=== PATIENT | female | born 1950 | race Caucasian/White ===

== ENCOUNTER 2017-11-16 19:35 | Emergency (ER) | payer MEDICARE, OTHER ==
[~2017-11-16] VITALS: Ht 160 cm; Wt 105.0 kg
[~2017-11-16 19:35] MED LIST: AMLO5TAB4 PO; ASPI-630 PO; FURO-69 PO; LISI-376 PO; METF500T5 PO; MULT-245 PO; POTA10TA10 PO; SIMV5TAB PO
--- NOTE | 2017-11-16 20:35 | PHYS DOC ---
Past History Past Medical History: Diabetes, High Cholesterol, Hypertension, Other Past Surgical History: Hysterectomy Smoking: Non-smoker Alcohol Use: None Drug Use: None Adult General Chief Complaint Chief Complaint: SKIN RASH/ABSCESS HPI HPI 67 yo female presents with rash on her left forearm, left rib area and left upper leg. Patient states that the rash is very pruritic. She noticed it starting about 4 days ago. It has seemed to spread. She was out working in the yard when the proper that she owns with a grass was very tall. She is unsure what She came in contact with. The rash started a day after she was out there. She denies fever or chills. She's had no difficulty breathing. She has no other complaints. Review of Systems Review of Systems Constitutional: Denies fever or chills [] Eyes: Denies change in visual acuity, redness, or eye pain [] HENT: Denies nasal congestion or sore throat [] Respiratory: Denies cough or shortness of breath [] Cardiovascular: No additional information not addressed in HPI [] GI: Denies abdominal pain, nausea, vomiting, bloody stools or diarrhea [] : Denies dysuria or hematuria [] Musculoskeletal: Denies back pain or joint pain [] Integument: Rash[] Neurologic: Denies headache, focal weakness or sensory changes [] Endocrine: Denies polyuria or polydipsia [] All other systems were reviewed and found to be within normal limits, except as documented in this note. Allergies Allergies Allergies Coded Allergies Type Severity Reaction Last Updated Verified No Known Drug Allergies 08/28/13 No Physical Exam Physical Exam Constitutional: Well developed, well nourished, no acute distress, non-toxic appearance. [] HENT: Normocephalic, atraumatic, bilateral external ears normal, oropharynx moist, no oral exudates, nose normal. [] Eyes: PERRLA, EOMI, conjunctiva normal, no discharge. [] Neck: Normal range of motion, no tenderness, supple, no stridor. [] Cardiovascular:Heart rate regular rhythm, no murmur [] Lungs & Thorax: Bilateral breath sounds clear to auscultation [] Abdomen: Bowel sounds normal, soft, no tenderness, no masses, no pulsatile masses. [] Skin: Erythematous patches vesicles on the patient's left forearm, left rib area , left lateral back, and left thigh.[] Back: No tenderness, no CVA tenderness. [] Extremities: No tenderness, no cyanosis, no clubbing, ROM intact, no edema. [] Neurologic: Alert and oriented X 3, normal motor function, normal sensory function, no focal deficits noted. [] Psychologic: Affect normal, judgement normal, mood normal. [] Current Patient Data Vital Signs Vital Signs Date Time Temp Pulse Resp B/P (MAP) Pulse Ox O2 Delivery O2 Flow Rate FiO2 11/16/17 19:35 98.1 95 16 98 Room Air EKG EKG [] Radiology/Procedures Radiology/Procedures [] Course & Med Decision Making Course & Med Decision Making Pertinent Labs and Imaging studies reviewed. (See chart for details) Patient appears to have poison bruno. I will treat her with prednisone for 7 days and triamcinolone. I have warned her that the prednisone could make her blood sugar increased significantly as she isn't diabetic. She will watch for symptoms of hyperglycemia. [] Dragon Disclaimer Dragon Disclaimer This electronic medical record was generated, in whole or in part, using a voice recognition dictation system. Departure Departure: Referrals: PCP,NO (PCP) ETIENNE JIMENEZ DO Nov 16, 2017 20:35
[2017-11-16] MEDS ORDERED: PRED-220 PO (20:38)
[2017-11-16] MEDS ORDERED: TRIA15CR50 TP (20:39)
[2017-11-16] MEDS ORDERED: predniSONE 10 MG TABLET PO ONE (20:45)
[2017-11-16 23:53] VITALS: BP 140/89
== END 2017-11-16 20:56 | disposition home or self-care (01) ==
LOC: ER 19:35
DX: L23.7 Allergic contact dermatitis due to plants, except food (principal); E11.9 Type 2 diabetes mellitus without complications; E78.00 Pure hypercholesterolemia, unspecified; I10 Essential (primary) hypertension
CPT/HCPCS: 99283; J7512

== ENCOUNTER 2017-11-20 13:04 | Emergency (ER) | payer MEDICARE, OTHER ==
[~2017-11-20] VITALS: Ht 160 cm; Wt 105.2 kg
[~2017-11-20 13:04] MED LIST changes: +PRED-220 PO; +TRIA15CR50 TP
[2017-11-20 13:14] VITALS: BP 117/66
[2017-11-20] MEDS ORDERED: DEXAMETHASONE SOD PHOS 10 MG/ML VIAL IM ONE (14:00)
[2017-11-20] MEDS ORDERED: BETA15CR5 TP (14:01)
[2017-11-20] MEDS ORDERED: METH4TAB2 PO (14:01)
[2017-11-20] MEDS ORDERED: HYDR25CA75 PO (14:01)
--- NOTE | 2017-11-20 14:01 | PHYS DOC ---
Past History Past Medical History: Diabetes, High Cholesterol, Hypertension, Other Past Surgical History: Hysterectomy Smoking: Non-smoker Alcohol Use: None Drug Use: None Adult General Chief Complaint Chief Complaint: ITCHING HPI HPI 67-year-old male patient state she has had pruritic rash inhaler extremities and trunk for one week that getting better with the treatment given in this emergency room 4 days ago and he states she had increasing of the rash and itching. Patient denies fever and chills, sick contact, shortness of breath. Patient was diagnosed with poison taryn and treated with Medrol Dosepak and local steroid. Review of Systems Review of Systems Constitutional: Denies fever or chills [] Eyes: Denies change in visual acuity, redness, or eye pain [] HENT: Denies nasal congestion or sore throat [] Respiratory: Denies cough or shortness of breath [] Cardiovascular: No additional information not addressed in HPI [] GI: Denies abdominal pain, nausea, vomiting, bloody stools or diarrhea [] : Denies dysuria or hematuria [] Musculoskeletal: Denies back pain or joint pain [] Integument: Reports rash & itching [] Neurologic: Denies headache, focal weakness or sensory changes [] Endocrine: Denies polyuria or polydipsia [] All other systems were reviewed and found to be within normal limits, except as documented in this note. Current Medications Current Medications Current Medications Medications (Trade) Dose Ordered Sig/Robert Start Time Stop Time Status Last Admin Dose Admin Dexamethasone Sodium Phosphate (Decadron) 10 mg 1X ONCE 11/20/17 14:00 11/20/17 14:01 11/20/17 13:49 10 MG Allergies Allergies Allergies Coded Allergies Type Severity Reaction Last Updated Verified No Known Drug Allergies 08/28/13 No Physical Exam Physical Exam Constitutional: Well developed, well nourished, mild distress, non-toxic appearance. [] HENT: Normocephalic, atraumatic Eyes: PERRLA, EOMI, conjunctiva normal, no discharge. [] Neck: Normal range of motion, no tenderness, supple, no stridor. [] Cardiovascular:Heart rate regular rhythm, no murmur [] Lungs & Thorax: Bilateral breath sounds clear to auscultation [] Skin: Warm, dry, no erythema, erythematous and vesicular rash in left upper extremity and left side of trunk and lower extremity without sign of infection Back: No tenderness, no CVA tenderness. [] Extremities: No tenderness, no cyanosis, no clubbing, ROM intact, no edema. [] Neurologic: Alert and oriented X 3, normal motor function, normal sensory function, no focal deficits noted. [] Psychologic: Affect normal, judgement normal, mood normal. [] Current Patient Data Vital Signs Vital Signs Date Time Temp Pulse Resp B/P (MAP) Pulse Ox O2 Delivery O2 Flow Rate FiO2 11/20/17 13:14 98.1 90 20 98 11/20/17 13:14 Room Air EKG EKG [] Radiology/Procedures Radiology/Procedures [] Course & Med Decision Making Course & Med Decision Making Evaluation of patient in ER showed 67-year-old female patient with poison taryn rash that did not get better with Solu-Medrol and topical steroid given in emergency room 4 days ago. Patient had blood sugar of 77 and treated with dexamethasone and prescription for Medrol Dosepak, Atarax and betamethasone was given. Dragon Disclaimer Dragon Disclaimer This electronic medical record was generated, in whole or in part, using a voice recognition dictation system. Departure Departure: Impression: Primary Impression: Poison taryn dermatitis Disposition: HOME, SELF-CARE (at 1357) Condition: IMPROVED Referrals: PCPABEBE (PCP) Patient Instructions: Poison Taryn Additional Instructions: Follow-up with your primary care physician in 3-5 days Return to ER if not getting better Scripts Betamethasone Dipropionate (BETAMETHASONE DIPROPIONATE) 15 Gm Cream..g. 1 [place] TP BID, #45 GM 1 Refill Prov: BEN SUTHERLAND MD 11/20/17 Hydroxyzine Pamoate (HYDROXYZINE PAMOATE) 25 Mg Capsule 1 CAP PO TID PRN for ITCHING, #30 CAP Prov: BEN SUTHERLAND MD 11/20/17 Methylprednisolone (MEDROL) 4 Mg Tab.ds.pk 1 PKG PO UD, #1 PKG Prov: BEN SUTHERLAND MD 11/20/17 BEN SUTHERLAND MD Nov 20, 2017 14:01
== END 2017-11-20 14:09 | disposition home or self-care (01) ==
LOC: ER 13:04
DX: L23.7 Allergic contact dermatitis due to plants, except food (principal); E11.9 Type 2 diabetes mellitus without complications; E78.00 Pure hypercholesterolemia, unspecified; I10 Essential (primary) hypertension
CPT/HCPCS: 96372; 99283; J1100

== ENCOUNTER 2019-01-23 10:37 | Emergency (ER) | payer MEDICARE, OTHER ==
[~2019-01-23] VITALS: Ht 312.4 cm; Wt 105.0 kg
[~2019-01-23 10:37] MED LIST changes: +BETA15CR5 TP; +HYDR25CA75 PO; +METF500T16 PO; -METF500T5 PO; +METH4TAB2 PO
--- NOTE | 2019-01-23 11:04 | PHYS DOC ---
Past History Past Medical History: Diabetes, High Cholesterol, Hypertension, Other Past Surgical History: Hysterectomy Smoking: Non-smoker Alcohol Use: None Drug Use: None Adult General Chief Complaint Chief Complaint: DIZZY/LIGHT HEADED [facility] HPI 68-year-old female presents to the emergency department with complaints of left sided facial pain, left ear pain, dizziness. Patient states initial symptoms started yesterday with progressive worsening. She denies any nausea, vomiting, fever. States she's had a history of sinus infections and this feels similar however the dizziness is different. Patient denies any chest pain, shortness of breath, abdominal pain. She denies any visual changes. Nothing makes her symptoms worse, nothing makes her symptoms better. Review of Systems Review of Systems Constitutional: Denies fever or chills [] Eyes: Denies change in visual acuity, redness, or eye pain [] HENT: Denies nasal congestion or sore throat, left facial fullness, pain to left face, left ear Respiratory: Denies cough or shortness of breath [] Cardiovascular: No additional information not addressed in HPI [] GI: Denies abdominal pain, nausea, vomiting, bloody stools or diarrhea [] Neurologic: Denies headache, focal weakness or sensory changes [] All other systems were reviewed and found to be within normal limits, except as documented in this note. Allergies Allergies Allergies Coded Allergies Type Severity Reaction Last Updated Verified No Known Drug Allergies 08/28/13 No Physical Exam Physical Exam Constitutional: Well developed, well nourished, no acute distress, non-toxic appearance. [] HENT: Normocephalic, atraumatic, bilateral external ears normal, oropharynx moist, no oral exudates, nose normal. no nystagmus appreciated on exam[] Eyes: PERRLA, EOMI, conjunctiva normal, no discharge. [] Neck: Normal range of motion, no tenderness, supple, no stridor. [] Cardiovascular:Heart rate regular rhythm, no murmur [] Lungs & Thorax: Bilateral breath sounds clear to auscultation [] Abdomen: Bowel sounds normal, soft, no tenderness, no masses, no pulsatile masses. [] Skin: Warm, dry, no erythema, no rash. [] Extremities: No tenderness, no cyanosis, no edema. [] Neurologic: Alert and oriented X 3, no focal deficits noted. [] Psychologic: Affect normal, judgement normal, mood normal. [] Current Patient Data Vital Signs Vital Signs Date Time Temp Pulse Resp B/P (MAP) Pulse Ox O2 Delivery O2 Flow Rate FiO2 01/23/19 10:37 97.9 90 18 98 Room Air EKG EKG [] Radiology/Procedures Radiology/Procedures [address] [address] IMAGING REPORT Signed PATIENT: KAROLINA LEMOS ACCOUNT: [id number] : 1950 LOCATION: ER AGE: 68 SEX: F EXAM STATUS: REG ER ORD. PHYSICIAN: ALONSO RIVERO MD REASON: dizzy, headache PROCEDURE: CT HEAD WO CONTRAST CT HEAD WO CONTRAST Clinical indications: Dizziness and headache for 2 days. COMPARISON: March 20, 2010. Technique: Noncontrast axial cross sectional scanning of the head was performed. PQRS compliance Statement One or more of the following individualized dose reduction techniques were utilized for this study: 1. Automated exposure control 2. Adjustment of the mA and/or kV according to patient size 3. Use of iterative reconstruction technique Findings: No acute intracranial hemorrhage or midline shift or mass-effect or hydrocephalus or extra-axial fluid collection is seen. No focal hypodense area or sulci effacement is seen to indicate an acute infarct or edema radiographically. No skull fracture or pneumocephalus is seen. No opacification of the mastoid sinuses or the middle ear cavities or the paranasal sinuses is seen. Impression: No acute intracranial abnormality is seen. Electronically signed by: Tresa Salguero MD (01/23/2019 11:18 AM) [facility] DICTATED AND SIGNED BY: TRESA SALGUERO MD DATE: 01/23/19 1118 CC: ALONSO RIVERO MD; NADIR SHAY MD ~ [] Course & Med Decision Making Course & Med Decision Making Pertinent Labs and Imaging studies reviewed. (See chart for details) []68-year-old female presents to the emergency department with complaints of lef t sided facial pain, left ear pain, dizziness. Patient states initial symptoms started yesterday with progressive worsening. She denies any nausea, vomiting, fever. States she's had a history of sinus infections and this feels similar however the dizziness is different. Patient denies any chest pain, shortness of breath, abdominal pain. She denies any visual changes. Nothing makes her symptoms worse, nothing makes her symptoms better. CT head reviewed without acute process. Discussed findings with patient with return precautions. Augmentin rx provided upon discharge, Meclizine rx provided upon discharge Dragon Disclaimer Dragon Disclaimer This electronic medical record was generated, in whole or in part, using a voice recognition dictation system. Departure Departure: Impression: Primary Impression: Dizziness Additional Impression: Congestion of nasal sinus Disposition: HOME, SELF-CARE Condition: STABLE Referrals: NADIR SHAY MD (PCP) Patient Instructions: Dizziness, [id number], Sinusitis, [id number] Scripts Meclizine Hcl (MECLIZINE HCL) 25 Mg Tablet 1 TAB PO PRN TID for dizziness, #30 TAB Take 1/2 tab po every 8 hours as needed for dizziness Prov: ALONSO RIVERO MD 01/23/19 Amoxicillin/Potassium Clav (AUGMENTIN 875-125 TABLET) 1 Each Tablet 1 TAB PO BID for infection for 10 Days, #20 TAB Prov: ALONSO RIVERO MD 01/23/19 Problem Qualifiers ALONSO RIVERO MD Jan 23, 2019 11:04
--- NOTE | 2019-01-23 11:21 | RAD ---
CT HEAD WO CONTRAST Clinical indications: Dizziness and headache for 2 days. COMPARISON: March 20, 2010. Technique: Noncontrast axial cross sectional scanning of the head was performed. PQRS compliance Statement One or more of the following individualized dose reduction techniques were utilized for this study: 1. Automated exposure control 2. Adjustment of the mA and/or kV according to patient size 3. Use of iterative reconstruction technique Findings: No acute intracranial hemorrhage or midline shift or mass-effect or hydrocephalus or extra-axial fluid collection is seen. No focal hypodense area or sulci effacement is seen to indicate an acute infarct or edema radiographically. No skull fracture or pneumocephalus is seen. No opacification of the mastoid sinuses or the middle ear cavities or the paranasal sinuses is seen. Impression: No acute intracranial abnormality is seen. Electronically signed by: Chito Salguero MD (01/23/2019 11:18 AM) [facility]
[2019-01-23] MEDS ORDERED: MECL25TA3 PO (11:48)
[2019-01-23] MEDS ORDERED: AMOX1TAB61 PO (11:48)
== END 2019-01-23 11:50 | disposition home or self-care (01) ==
LOC: ER 10:37
DX: R42 Dizziness and giddiness (principal); R51 Headache; R09.81 Nasal congestion; H92.02 Otalgia, left ear; E11.9 Type 2 diabetes mellitus without complications; E78.00 Pure hypercholesterolemia, unspecified; I10 Essential (primary) hypertension
CPT/HCPCS: 70450; 99284-25

== ENCOUNTER 2020-03-18 11:34 | Emergency (ER) | payer MEDICARE, OTHER ==
[~2020-03-18] VITALS: Ht 312.4 cm; Wt 99.1 kg
[~2020-03-18 11:34] MED LIST changes: +AMOX1TAB61 PO; +MECL-75 PO
[2020-03-18 12:26] LABS: BASO # 0.1 x10^3/uL (0.0-0.2); BASO % 1 % (0-3); EOS # 0.2 x10^3/uL (0.0-0.7); EOS % 2 % (0-3); HEMATOCRIT 39.3 % (36.0-47.0); HEMOGLOBIN 12.8 g/dL (12.0-15.5); LYMPH # 4.1 x10^3/uL (1.0-4.8); LYMPH % 40 % (24-48); MEAN CORPUSCULAR HEMOGLOBIN 28 pg (25-35); MEAN CORPUSCULAR HGB CONC 33 g/dL (31-37); MEAN CORPUSCULAR VOLUME 86 fL (79-100); MONO # 0.6 x10^3/uL (0.0-1.1); MONO % 6 % (0-9); NEUT # 5.4 x10^3uL (1.8-7.7); NEUT % 52 % (31-73); PLATELET COUNT 249 x10^3/uL (140-400); RED BLOOD COUNT 4.58 x10^6/uL (3.50-5.40); RED CELL DISTRIBUTION WIDTH 13.8 % (11.5-14.5); WHITE BLOOD COUNT 10.3 x10^3/uL (4.0-11.0)
--- NOTE | 2020-03-18 12:32 | RAD ---
CT head without contrast 03/18/2020. Reason for exam: Headaches. Noncontrast images were performed. Exposure: One or more of the following individualized dose reduction techniques were utilized for this examination: 1. Automated exposure control 2. Adjustment of the mA and/or kV according to patient size 3. Use of iterative reconstruction technique. FINDINGS: There is no apparent intracranial mass, hemorrhage or abnormal extra-axial fluid collection. No area of abnormal density is seen in the brain. The ventricles and basilar cisterns are normally positioned. The sinuses and mastoid air cells appear clear. IMPRESSION: No apparent acute abnormality. Electronically signed by: oYng Rashid Jr., MD (03/18/2020 12:28 PM) [facility]
[2020-03-18 12:35] LABS: CALCIUM 9.9 mg/dL (8.5-10.1); GFR 55.3; POTASSIUM 4.1 mmol/L (3.5-5.1)
--- NOTE | 2020-03-18 12:41 | PHYS DOC ---
Past History Past Medical History: Diabetes, High Cholesterol, Hypertension Past Surgical History: Hysterectomy Smoking: Non-smoker Alcohol Use: None Drug Use: None General Adult EDM: Chief Complaint: MULTIPLE COMPLAINTS HPI: HPI: Patient is a 69-year-old female who presented to ER for evaluation of headache that she started having since yesterday. Patient has history of sinus headache when the weather change. Patient was outside raking leaves yesterday. Then later she started having a headache. Patient went to have dinner with her son last night. Her son answer question and I took her a couple minutes to FIND the answer for him but she had no slurred speech, no blurry vision. She was doing fine all night long. Today, she still has the headache so her family convinced her to come here for evaluation. Patient denies any weakness or numbness anywhere. Patient denies any slurred speech, no blurry vision. Review of Systems: Review of Systems: Constitutional: Denies fever or chills Eyes: Denies change in visual acuity HENT: Denies nasal congestion or sore throat Respiratory: Denies cough or shortness of breath Cardiovascular: Denies chest pain or edema GI: Denies abdominal pain, nausea, vomiting, bloody stools or diarrhea : Denies dysuria Musculoskeletal: Denies back pain or joint pain Integument: Denies rash Neurologic: Positive for headache, no focal weakness or sensory changes Endocrine: Denies polyuria or polydipsia Lymphatic: Denies swollen glands Psychiatric: Denies depression or anxiety Allergies: Allergies: Allergies Coded Allergies Type Severity Reaction Last Updated Verified No Known Drug Allergies 08/28/13 No Physical Exam: PE: Constitutional: Well developed, well nourished, no acute distress, non-toxic appearance. [] HENT: Normocephalic, atraumatic, bilateral external ears normal, oropharynx moist, no oral exudates, nose normal. [] Eyes: PERRLA, EOMI, conjunctiva normal, no discharge. [] Neck: Normal range of motion, no tenderness, supple, no stridor. [] Cardiovascular:Heart rate regular rhythm, no murmur [] Lungs & Thorax: Bilateral breath sounds clear to auscultation [] Abdomen: Bowel sounds normal, soft, no tenderness, no masses, no pulsatile masses. [] Skin: Warm, dry, no erythema, no rash. [] Back: No tenderness, no CVA tenderness. [] Extremities: No tenderness, no cyanosis, no clubbing, ROM intact, no edema. [] Neurologic: Alert and oriented X 3, normal motor function, normal sensory function, no focal deficits noted. NIH stroke scale was 0. Psychologic: Affect normal, judgement normal, mood normal. [] Current Patient Data: Labs: Laboratory Tests Test 03/18/20 12:04 White Blood Count 10.3 x10^3/uL (4.0-11.0) Red Blood Count 4.58 x10^6/uL (3.50-5.40) Hemoglobin 12.8 g/dL (12.0-15.5) Hematocrit 39.3 % (36.0-47.0) Mean Corpuscular Volume 86 fL (79-100) Mean Corpuscular Hemoglobin 28 pg (25-35) Mean Corpuscular Hemoglobin Concent 33 g/dL (31-37) Red Cell Distribution Width 13.8 % (11.5-14.5) Platelet Count 249 x10^3/uL (140-400) Neutrophils (%) (Auto) 52 % (31-73) Lymphocytes (%) (Auto) 40 % (24-48) Monocytes (%) (Auto) 6 % (0-9) Eosinophils (%) (Auto) 2 % (0-3) Basophils (%) (Auto) 1 % (0-3) Neutrophils # (Auto) 5.4 x10^3uL (1.8-7.7) Lymphocytes # (Auto) 4.1 x10^3/uL (1.0-4.8) Monocytes # (Auto) 0.6 x10^3/uL (0.0-1.1) Eosinophils # (Auto) 0.2 x10^3/uL (0.0-0.7) Basophils # (Auto) 0.1 x10^3/uL (0.0-0.2) Sodium Level 138 mmol/L (136-145) Potassium Level 4.1 mmol/L (3.5-5.1) Chloride Level 102 mmol/L (98-107) Carbon Dioxide Level 26 mmol/L (21-32) Anion Gap 10 (6-14) Blood Urea Nitrogen 15 mg/dL (7-20) Creatinine 1.0 mg/dL (0.6-1.0) Estimated GFR (Cockcroft-Gault) 55.3 BUN/Creatinine Ratio 15 (6-20) Glucose Level 123 mg/dL (70-99) H Calcium Level 9.9 mg/dL (8.5-10.1) Magnesium Level Pending Total Bilirubin Pending Aspartate Amino Transferase (AST) Pending Alanine Aminotransferase (ALT) Pending Alkaline Phosphatase Pending Total Protein Pending Albumin Pending Albumin/Globulin Ratio Pending Vital Signs: Vital Signs Date Time Temp Pulse Resp B/P (MAP) Pulse Ox O2 Delivery O2 Flow Rate FiO2 03/18/20 11:35 97.9 95 17 159/106 (123) 98 Room Air EKG: EKG: EKG was done at 1312, heart rate of 86 bpm, sinus rhythm, no ST segment elevation. Radiology/Procedures: Radiology/Procedures: [][address] [address] IMAGING REPORT Signed PATIENT: KAROLINA LEMOS ACCOUNT: [id number] : 1950 LOCATION: ER AGE: 69 SEX: F EXAM STATUS: REG ER ORD. PHYSICIAN: SOPHIA WEST DO REASON: HEADACHE PROCEDURE: CT HEAD WO CONTRAST CT head without contrast 03/18/2020. Reason for exam: Headaches. Noncontrast images were performed. Exposure: One or more of the following individualized dose reduction techniques were utilized for this examination: 1. Automated exposure control 2. Adjustment of the mA and/or kV according to patient size 3. Use of iterative reconstruction technique. FINDINGS: There is no apparent intracranial mass, hemorrhage or abnormal extra-axial fluid collection. No area of abnormal density is seen in the brain. The ventricles and basilar cisterns are normally positioned. The sinuses and mastoid air cells appear clear. IMPRESSION: No apparent acute abnormality. Electronically signed by: Thomas Rashid Jr., MD (03/18/2020 12:28 PM) [facility] DICTATED AND SIGNED BY: THOMAS RASHID Jr, MD DATE: 03/18/20 1228 CC: SOPHIA WEST DO; NADIR SHAY MD ~MTH0 0 Heart Score: Risk Factors: Risk Factors: DM, Current or recent (<one month) smoker, HTN, HLP, family history of CAD, obesity. Risk Scores: Score 0 - 3: 2.5% MACE over next 6 weeks - Discharge Home Score 4 - 6: 20.3% MACE over next 6 weeks - Admit for Clinical Observation Score 7 - 10: 72.7% MACE over next 6 weeks - Early Invasive Strategies Course & Med Decision Making: Course & Med Decision Making Pertinent Labs and Imaging studies reviewed. (See chart for details) Patient is a 69-year-old female who was evaluated in the ER due to headache. Patient had no fever, her vital signs was in normal limits. CT scan of her head did not show any acute problem. Patient had no neurological deficit in the ER, her NIH stroke scale was 0. Her lab work did not show any acute problem. This is probably her typical headache that she experienced before. Patient was discharged home in stable condition, she will need to follow-up with her family physician and a neurologist for outpatient follow-up. Patient is amenable to plan of care. Dragon Disclaimer: Dragon Disclaimer: This electronic medical record was generated, in whole or in part, using a voice recognition dictation system. Departure Departure: Impression: Primary Impression: Headache Disposition: 01 DC HOME SELF CARE/HOMELESS Condition: IMPROVED Referrals: NADIR SHAY MD (PCP) PLEASE CALL YOUR FAMILY PHYSICIAN FOR FOLLOW UP THIS WEEK. ANNEL ALTMAN MD PLEASE CALL THIS NEUROLOGIST THIS WEEK FOR OUTPATIENT EVALUATION. Patient Instructions: General Headache Without Cause Additional Instructions: Thank you for visiting our Emergency Department. We appreciate you trusting us with your care. If any additional problems come up don't hesitate to return to visit us. Please follow up with your primary care provider so they can plan additional care if needed and know about the problem that you had. If symptoms worsen come back to the Emergency Department. Any concerning symptoms that start such as chest pain, shortness of air, weakness or numbness on one side of the body, running high fevers or any other concerning symptoms return to the ER. SOPHIA WEST DO Mar 18, 2020 12:41
[2020-03-18 12:42] LABS: ALBUMIN 3.7 g/dL (3.4-5.0); ALBUMIN/GLOBULIN RATIO 0.9 (1.0-1.7); MAGNESIUM 1.4 mg/dL (1.8-2.4); TOTAL BILIRUBIN 0.3 mg/dL (0.2-1.0)
[2020-03-18 13:25] LABS: BACTERIA,URINE 0 /HPF (0-FEW); BILIRUBIN,URINE NEG (NEG); CLARITY,URINE CLEAR; COLOR,URINE YELLOW; GLUCOSE,URINE NEG (NEG); NITRITE,URINE NEG (NEG); RBC,URINE 0 /HPF (0-2); SQUAMOUS EPITHELIAL CELL,UR MOD /LPF; UROBILINOGEN,URINE 0.2 mg/dL (0.2 mg/dL); WBC,URINE OCC /HPF (0-4)
--- NOTE | 2020-03-18 13:43 | EKG ---
[facility] ED [facility] [address] [place] [address] Test Date: 2020-03-18 Test Time: 13:12:31 Pat Name: KAROLINA LEMOS Department: Room: Gender: F General Operator: : 1950 Requested By: SOPHIA WEST Order Number: [id number] Reading MD: Measurements Intervals [place] Rate: 86 P: 35 DE: 192 QRS: -65 QRSD: 66 T: 51 QT: 366 QTc: 441 Interpretive Statements SINUS RHYTHM ABNORMAL LEFT AXIS DEVIATION R-S TRANSITION ZONE IN V LEADS DISPLACED TO THE LEFT LOW LIMB LEAD VOLTAGE QRS(T) CONTOUR ABNORMALITY CONSISTENT WITH INFERIOR INFARCT PROBABLY OLD ABNORMAL ECG RI6.02 No previous ECG available for comparison
[2020-03-18 13:46] VITALS: BP 136/92
== END 2020-03-18 13:47 | disposition home or self-care (01) ==
LOC: ER 11:34
DX: R51.9 Headache, unspecified (principal); E11.9 Type 2 diabetes mellitus without complications; E78.00 Pure hypercholesterolemia, unspecified; I10 Essential (primary) hypertension
CPT/HCPCS: 36415; 70450; 80053; 81001; 83735; 85025; 85610; 85730; 93005; 99285

== ENCOUNTER 2021-04-30 17:02 | Emergency (ER) | payer MEDICARE, OTHER ==
[~2021-04-30] VITALS: Ht 160 cm; Wt 95.3 kg
[2021-04-30] MEDS ORDERED: ACETAMINOPHEN 325 MG TABLET PO ONE (17:30)
--- NOTE | 2021-04-30 17:43 | EKG ---
[address] [address] Test Date: 2021-04-30 Test Time: 17:20:32 Pat Name: KAROLINA LEMOS Department: Room: Gender: F Quarter Folder: BARBARA : 1950 Requested By: IRENA CRUZ Order Number: [id number] Reading MD: Fredis Ferrell Measurements Intervals [place] Rate: 91 P: 28 IN: 194 QRS: -56 QRSD: 74 T: 38 QT: 350 QTc: 432 Interpretive Statements SINUS RHYTHM ABNORMAL LEFT AXIS DEVIATION QRS(T) CONTOUR ABNORMALITY CONSISTENT WITH INFERIOR INFARCT PROBABLY OLD ABNORMAL ECG Electronically Signed On 05-02-2021 15:04:07 MEDICAL PAYMENT POSTER by Fredis Ferrell
--- NOTE | 2021-04-30 17:58 | RAD ---
Exam: CT head and cervical spine INDICATION: Elderly fall from standing TECHNIQUE: Sequential axial images through the head and cervical spine were obtained without the admi nistration of IV contrast. Exposure: One or more of the following in the visualized dose reduction techniques were utilized for this examination: 1. Automated exposure control 2. Adjustment of the MA and/or KV according to patient size 3. Use of iterative of reconstructive technique Comparisons: 03/18/2020 FINDINGS: Head: No focal parenchymal lesion or hemorrhage is identified. There is no midline shift or sulcal effaceme nt. No acute vascular territory infarction is identified. Lucas-white distinction is preserved. The ventricular system is within normal limits without compression hydrocephalus. The basal cisterns are well maintained. The visualized portions of the paranasal sinuses and mastoid air cells are well-pneumatized. No acute fractures. Cervical spine: Straightening of the cervical spine which may positional. Vertebral body heights are well-maintained. Fracture to the cervical spine is not identified. Spondylotic change in cervical spine with degenerative disc disease greatest at C5-C6. Mild bilateral facet arthropathy is also noted in the cervical spine. Visualized paraspinal soft tissues are unremarkable. IMPRESSION: 1. No acute intracranial abnormality. 2. Negative CT C-spine for acute traumatic injury. Electronically signed by: Buddy Velazco MD (04/30/2021 5:55 PM) [facility]
--- NOTE | 2021-04-30 18:02 | RAD ---
Study: XR LT WRIST 3VIEWS Indication: Fall. Comparison: None. Findings: No displaced fracture. Alignment is within normal limits. Mild arthrosis at the thumb CMC joint. No r etained radiopaque foreign body. Impression: No displaced fracture or malalignment. Electronically signed by: KOKI JEAN MD (04/30/2021 5:59 PM) [facility]
[2021-04-30 18:11] LABS: BASO % 0 % (0-3); EOS # 0.3 x10^3/uL (0.0-0.7); EOS % 3 % (0-3); HEMATOCRIT 38.6 % (36.0-47.0); HEMOGLOBIN 12.5 g/dL (12.0-15.5); LYMPH # 4.4 x10^3/uL (1.0-4.8); LYMPH % 44 % (24-48); MEAN CORPUSCULAR HEMOGLOBIN 27 pg (25-35); MEAN CORPUSCULAR HGB CONC 32 g/dL (31-37); MEAN CORPUSCULAR VOLUME 85 fL (79-100); MONO # 0.7 x10^3/uL (0.0-1.1); MONO % 7 % (0-9); NEUT # 4.4 x10^3uL (1.8-7.7); NEUT % 45 % (31-73); PLATELET COUNT 302 x10^3/uL (140-400); RED BLOOD COUNT 4.55 x10^6/uL (3.50-5.40); RED CELL DISTRIBUTION WIDTH 14.1 % (11.5-14.5); WHITE BLOOD COUNT 9.8 x10^3/uL (4.0-11.0)
[2021-04-30 18:17] LABS: CALCIUM 9.1 mg/dL (8.5-10.1); CREATININE 0.8 mg/dL (0.6-1.0); GFR 71.3; POTASSIUM 3.9 mmol/L (3.5-5.1)
--- NOTE | 2021-04-30 18:18 | PHYS DOC ---
Past History Past Medical History: Diabetes, High Cholesterol, Hypertension (IRENA CRUZ) Past Surgical History: Hysterectomy (IRENA CRUZ) Smoking: Non-smoker Alcohol Use: None Drug Use: None (IRENA CRUZ) General Adult EDM: Chief Complaint: DIZZY/LIGHT HEADED HPI: HPI: Patient is a 70 year old female who presents with lightheadedness that began this morning, which caused her to fall. Patient states that when she woke up this morning, she felt lightheaded and unsteady. She states that she fell onto her outstretched left hand and onto her bilateral knees. She reports a mild headache and some neck stiffness, but denies head trauma, loss of consciousness, nausea/vomiting or other joint pain. Patient reports she takes a 1 mg aspirin daily as well as hypertension medication, which includes Lasix. (IRENA CRUZ) Review of Systems: Review of Systems: Constitutional: Denies fever or chills Eyes: Denies change in visual acuity or visual field deficits HENT: Denies nasal congestion or sore throat Respiratory: Denies cough or shortness of breath Cardiovascular: Denies chest pain or edema GI: Denies abdominal pain, nausea, vomiting, bloody stools or diarrhea : Denies dysuria or hematuria Musculoskeletal: See HPI Integument: Denies rash or other skin lesions Neurologic: See HPI (IRENA CRUZ) Current Medications: Current Meds: Current Medications Medications (Trade) Dose Ordered Sig/Robert Start Time Stop Time Status Last Admin Dose Admin Acetaminophen (Tylenol) 650 mg 1X ONCE 04/30/21 17:30 04/30/21 17:38 DC (IRENA CRUZ) Allergies: Allergies: Allergies Coded Allergies Type Severity Reaction Last Updated Verified No Known Drug Allergies 08/28/13 No (IRENA CRUZ) Physical Exam: PE: Constitutional: Well developed, well nourished, no acute distress, non-toxic appearance. HENT: Normocephalic, atraumatic, bilateral external ears without deformity/discharge/ecchymosis, oropharynx moist, no oral exudates, nose without deformity or discharge. Eyes: PERRLA, EOMI, conjunctiva normal, no discharge. Neck: Normal range of motion, no step-off, no midline tenderness, supple, no stridor. Cardiovascular: Heart rate regular rhythm, no murmur. Lungs & Thorax: Bilateral breath sounds clear to auscultation. Skin: Warm, dry, no erythema, no rash, no abrasion, no laceration. Back: No step-off, no midline tenderness, no CVA tenderness. Extremities: Left wrist with minimal tenderness to palpation on the lateral aspect. Extremities otherwise no tenderness, no cyanosis, no clubbing, ROM intact. Neurologic: Alert and oriented x4, motor and sensory function grossly intact, no focal deficits noted. (IRENA CRUZ) Current Patient Data: Labs: Laboratory Tests Test 04/30/21 17:49 04/30/21 19:09 White Blood Count 9.8 x10^3/uL (4.0-11.0) Red Blood Count 4.55 x10^6/uL (3.50-5.40) Hemoglobin 12.5 g/dL (12.0-15.5) Hematocrit 38.6 % (36.0-47.0) Mean Corpuscular Volume 85 fL (79-100) Mean Corpuscular Hemoglobin 27 pg (25-35) Mean Corpuscular Hemoglobin Concent 32 g/dL (31-37) Red Cell Distribution Width 14.1 % (11.5-14.5) Platelet Count 302 x10^3/uL (140-400) Neutrophils (%) (Auto) 45 % (31-73) Lymphocytes (%) (Auto) 44 % (24-48) Monocytes (%) (Auto) 7 % (0-9) Eosinophils (%) (Auto) 3 % (0-3) Basophils (%) (Auto) 0 % (0-3) Neutrophils # (Auto) 4.4 x10^3uL (1.8-7.7) Lymphocytes # (Auto) 4.4 x10^3/uL (1.0-4.8) Monocytes # (Auto) 0.7 x10^3/uL (0.0-1.1) Eosinophils # (Auto) 0.3 x10^3/uL (0.0-0.7) Basophils # (Auto) 0.0 x10^3/uL (0.0-0.2) Sodium Level 140 mmol/L (136-145) Potassium Level 3.9 mmol/L (3.5-5.1) Chloride Level 104 mmol/L (98-107) Carbon Dioxide Level 25 mmol/L (21-32) Anion Gap 11 (6-14) Blood Urea Nitrogen 15 mg/dL (7-20) Creatinine 0.8 mg/dL (0.6-1.0) Estimated GFR (Cockcroft-Gault) 71.3 BUN/Creatinine Ratio 19 (6-20) Glucose Level 135 mg/dL (70-99) Calcium Level 9.1 mg/dL (8.5-10.1) Magnesium Level 2.0 mg/dL (1.8-2.4) Total Bilirubin 0.4 mg/dL (0.2-1.0) Aspartate Amino Transf (AST/SGOT) 15 U/L (15-37) Alanine Aminotransferase (ALT/SGPT) 16 U/L (14-59) Alkaline Phosphatase 64 U/L (46-116) Total Protein 8.4 g/dL (6.4-8.2) Albumin 3.9 g/dL (3.4-5.0) Albumin/Globulin Ratio 0.9 (1.0-1.7) Urine Collection Type Unknown Urine Color Yellow Urine Clarity Cloudy Urine pH 6.0 Urine Specific [place] >=1.030 Urine Protein Neg (NEG-TRACE) Urine Glucose (UA) Neg mg/dL (NEG) Urine Ketones (Stick) Trace mg/dL (NEG) Urine Blood Trace (NEG) Urine Nitrite Neg (NEG) Urine Bilirubin Neg (NEG) Urine Urobilinogen Dipstick 0.2 mg/dL (0.2 mg/dL) Urine Leukocyte Esterase Large (NEG) Urine RBC 3-5 /HPF (0-2) Urine WBC >40 /HPF (0-4) Urine Squamous Epithelial Cells Many /LPF Urine Bacteria Many /HPF (0-FEW) Vital Signs: Vital Signs Date Time Temp Pulse Resp B/P (MAP) Pulse Ox O2 Delivery O2 Flow Rate FiO2 04/30/21 19:00 84 18 155/66 (95) 97 Room Air 04/30/21 17:08 98.2 86 20 160/76 (104) 97 Room Air (IRENA CRUZ) EKG: EKG: EKG Interpreted by Dr. Skelton at 1730: Regular rate and rhythm 91 bpm with no ectopic beats. WA 194 ms/QT 350 ms/QTc 432 ms. No STEMI. (IRENA CRUZ) Radiology/Procedures: Radiology/Procedures: PROCEDURE: CT HEAD AND CERVICAL SPINE WO Exam: CT head and cervical spine INDICATION: Elderly fall from standing TECHNIQUE: Sequential axial images through the head and cervical spine were obtained without the administration of IV contrast. Exposure: One or more of the following in the visualized dose reduction techniques were utilized for this examination: 1. Automated exposure control 2. Adjustment of the MA and/or KV according to patient size 3. Use of iterative of reconstructive technique Comparisons: 03/18/2020 FINDINGS: Head: No focal parenchymal lesion or hemorrhage is identified. There is no midline shift or sulcal effacement. No acute vascular territory infarction is identified. Lucas-white distinction is preserved. The ventricular system is within normal limits without compression hydrocephalus. The basal cisterns are well maintained. The visualized portions of the paranasal sinuses and mastoid air cells are well- pneumatized. No acute fractures. Cervical spine: Straightening of the cervical spine which may positional. Vertebral body heights are well-maintained. Fracture to the cervical spine is not identified. Spondylotic change in cervical spine with degenerative disc disease greatest at C5-C6. Mild bilateral facet arthropathy is also noted in the cervical spine. Visualized paraspinal soft tissues are unremarkable. IMPRESSION: 1. No acute intracranial abnormality. 2. Negative CT C-spine for acute traumatic injury. Electronically signed by: Buddy Velazco MD (04/30/2021 5:55 PM) [facility] PROCEDURE: WRIST 3V LEFT Study: XR LT WRIST 3VIEWS Indication: Fall. Comparison: None. Findings: No displaced fracture. Alignment is within normal limits. Mild arthrosis at the thumb CMC joint. No retained radiopaque foreign body. Impression: No displaced fracture or malalignment. Electronically signed by: KOKI JEAN MD (04/30/2021 5:59 PM) [facility] (IRENA CRUZ) Heart Score: C/O Chest Pain: No (IRENA CRUZ) Course & Med Decision Making: Course & Med Decision Making Pertinent Labs and Imaging studies reviewed. (See chart for details) Patient is a 70-year-old female with history of hypertension treated with Lasix who presents with 1 day history of lightheadedness with a fall this morning. Work-up today will include head and neck CT plain, x-rays of left wrist, labs, urinalysis, EKG. Patient work-up significant only for what appears to be evidence of UTI on urinalysis. Patient will be treated with outpatient oral antibiotic therapy. Patient was given return precautions. Patient understands and is agreeable to discharge plan. (IRENA CRUZ) Dragon Disclaimer: Dragon Disclaimer: This electronic medical record was generated, in whole or in part, using a voice recognition dictation system. (IRENA CRUZ) Attending Co-Sign The patient was seen and interviewed as well as examined at the bedside. The chart was reviewed. The case was discussed. Agree with the plan of care. (ETIENNE JIMENEZ DO) Departure Departure: Impression: Primary Impression: UTI (urinary tract infection) Qualified Codes: N30.00 - Acute cystitis without hematuria Disposition: HOME / SELF CARE / HOMELESS Condition: STABLE Referrals: NADIR SHAY MD (PCP) Patient Instructions: Urinary Tract Infection, [id number] Additional Instructions: EMERGENCY DEPARTMENT GENERAL DISCHARGE INSTRUCTIONS Thank you for coming to [facility] (ED) today and trusting us with you care. We trust that you had a positive experience in our Emergency Department. If you wish to speak to the department management, you may call the director at [phone]. YOUR FOLLOW UP INSTRUCTIONS ARE FOLLOWS: 1. The Emergency Physician has interpreted your imaging studies. The specialist also reviewed them. If there is a change in the findings, you will be notified in 48 hours when at all possible. 3. A lab test or culture has been done, your results will be reviewed and you will be notified if you need a change in treatment. ADDITIONAL INSTRUCTIONS AND INFORMATION: 1. Your care today has been supervised by a physician who is specially trained in emergency care. Many problems require more than one evaluation for a complete diagnosis and treatment. We recommend that you schedule your follow up appointment as recommended to ensure complete treatment of you illness or injury. If you are unable to obtain follow up care and continue to have a problem, or if your condition worsens, we recommend that you return to the ED. 2. We are not able to safely determine your condition over the phone nor are we able to give sound medical advice over the phone. For these safety reasons, if you call for medical advice we will ask you to come to the ED for further evaluation. 3. If you have any questions regarding these discharge instructions please call the ED at [phone]. SAFETY INFORMATION: In the interest of safety, wellness, and injury prevention; we encourage you to wear your seat belt, if you smoke; quite smoking, and we encourage family to use a protective helmet for bicycling and other sporting events that present an increased risk for head injury. IF YOUR SYMPTOMS WORSEN OR NEW SYMPTOMS DEVELOP, OR YOU HAVE CONCERNS ABOUT YOUR CONDITION; OR IF YOUR CONDITION WORSENS WHILE YOU ARE WAITING FOR YOUR FOLLOW UP APPOINTMENT; EITHER CONTACT YOUR PRIMARY CARE DOCTOR, THE PHYSICIAN WHOSE NAME AND NUMBER YOU WERE GIVEN, OR RETURN TO THE ED IMMEDIATELY. Scripts Cephalexin (KEFLEX) 500 Mg Capsule 1 CAP PO BID for UTI for 5 Days, #10 CAP Prov: IRENA CRUZ 04/30/21 IRENA CRUZ Apr 30, 2021 18:18 ETIENNE JIMENEZ DO May 01, 2021 14:42
[2021-04-30 18:23] LABS: ALBUMIN 3.9 g/dL (3.4-5.0); ALBUMIN/GLOBULIN RATIO 0.9 (1.0-1.7); TOTAL BILIRUBIN 0.4 mg/dL (0.2-1.0); TOTAL PROTEIN 8.4 g/dL (6.4-8.2)
[2021-04-30] MEDS ORDERED: IV NORMAL SALINE 500ML 500 ML IV ONE (18:45)
[2021-04-30 19:00] VITALS: BP 155/66
[2021-04-30 20:12] LABS: BACTERIA,URINE MANY /HPF (0-FEW); BILIRUBIN,URINE NEG (NEG); CLARITY,URINE CLOUDY; COLOR,URINE YELLOW; GLUCOSE,URINE NEG (NEG); NITRITE,URINE NEG (NEG); SQUAMOUS EPITHELIAL CELL,UR MANY /LPF; UROBILINOGEN,URINE 0.2 mg/dL (0.2 mg/dL); WBC,URINE >40 /HPF (0-4)
[2021-04-30] MEDS ORDERED: CEPH500C PO (20:26)
[2021-04-30] MEDS ORDERED: CEPHALEXIN 250MG 4CAPSULE STARTPACK. PO ONE (20:30)
[2021-04-30] MEDS ORDERED: CEPHALEXIN 250 MG CAPSULE PO ONE (20:30)
== END 2021-04-30 20:56 | disposition home or self-care (01) ==
LOC: ER 17:02
DX: N30.00 Acute cystitis without hematuria (principal); M25.532 Pain in left wrist; E11.9 Type 2 diabetes mellitus without complications; E78.00 Pure hypercholesterolemia, unspecified; I10 Essential (primary) hypertension
CPT/HCPCS: 36415; 70450; 72125; 73110; 80053; 81001; 83735; 85025; 87086; 93005; 96360; 96361; 99285; J7040